=== PATIENT | female | born 1995 | race Caucasian/White ===

== ENCOUNTER 2017-08-12 04:19 | Emergency (ER) | payer OTHER ==
[2017-08-12] MEDS ORDERED: PENICILLIN VK 250MG PREPACK#6 BTL TAKEHOME ONE (05:49)
--- NOTE | 2017-08-12 05:50 | EDPHY ---
H & P Stated Complaint: c/o sorethroat/fever/sore neck x 1.5 days [employer], recent return from [place] Time Seen by Provider: 08/12/17 04:52 HPI/ROS: HPI The patient presents with sore throat which has been present for the last 2 days which started slowly and has gotten progressively worse. It is associated with fever as high as 102 F. She feels body aches. She has not had a cough. She does not have a headache or difficulty moving her neck.. REVIEW OF SYSTEMS Constitutional: Positive for fever, no chills. Eyes: No discharge. ENT: Positive for sore throat. Cardiovascular: No chest pain, no palpitations. Respiratory: No cough, no shortness of breath. Gastrointestinal: No abdominal pain, no vomiting. Genitourinary: No hematuria. Musculoskeletal: No back pain. Skin: No rashes. Neurological: No headache. PMHx: Healthy Soc Hx: Returned from [place] a few days ago PHYSICAL General Appearance: Alert, no distress Eyes: Pupils equal and round no pallor or injection ENT, Mouth: Mucous membranes moist, posterior pharynx is erythematous with exudates present Respiratory: There are no retractions, lungs are clear to auscultation Cardiovascular: Regular rate and rhythm Neurological: A&O, moves all extremities Skin: Warm and dry, no rashes Musculoskeletal: Neck is supple non tender Extremities: symmetrical, full range of motion Psychiatric: Patient is oriented X 3, there is no agitation Source: Patient Exam Limitations: No limitations - Medical/Surgical History Hx Asthma: Yes Hx Chronic Respiratory Disease: No Hx Diabetes: No Hx Cardiac Disease: No Hx Renal Disease: No Hx Cirrhosis: No Hx Alcoholism: No Hx HIV/AIDS: No Hx Splenectomy or Spleen Trauma: No Other PMH: asthma - Social History Smoking Status: Never smoked Constitutional: Initial Vital Signs Temperature (C) 37.5 C 08/12/17 04:22 Heart Rate 106 H 08/12/17 04:22 Respiratory Rate 16 08/12/17 04:22 Blood Pressure 116/76 08/12/17 04:22 O2 Sat (%) 95 08/12/17 04:22 O2 Delivery Mode Room Air Allergies/Adverse Reactions: No Known Allergies Allergy (Unverified 08/12/17 04:25) Home Medications: Medication Instructions Recorded Ibuprofen 08/12/17 Penicillin V Potassium [Penicillin 500 mg PO BID #14 tab 06/07/18 VK] Medical Decision Making Differential Diagnosis: 22-year-old female who is healthy presents with sore throat. On exam, appears to have a pharyngitis. Rapid strep positive. I have offered her penicillin IM verses prescription, she prefers pills. I have offered her Decadron, however she declines. We discussed diagnosis and treatment plan. She will be discharged from the emergency department. Differential diagnosis includes strep pharyngitis, viral pharyngitis, less likely diphtheria - Data Points Laboratory Results: 08/12/17 05:25 Group A Strep Screen POSITIVE H (NEGATIVE) Departure - Departure Disposition: Home, Routine, Self-Care Clinical Impression: Strep pharyngitis Condition: Good Instructions: Strep Throat (ED) Additional Instructions: Please make sure to drink plenty of fluids. You can take ibuprofen 400 mg with acetaminophen 650 mg every 6 hr as needed for pain. Referrals: NONE *PRIMARY CARE P,. [Primary Care Provider] - As per Instructions Prescriptions: Penicillin V Potassium [Penicillin VK] 500 mg PO BID #14 tab
[2017-08-12 06:00] VITALS: BP 116/67
== END 2017-08-12 06:00 | disposition home or self-care (01) ==
DX: J02.0 Streptococcal pharyngitis (principal); J45.909 Unspecified asthma, uncomplicated